=== PATIENT | female | born 1955 | race Asian ===

== ENCOUNTER 2025-01-25 10:46 | Inpatient (IN) | payer BC, MEDICARE ==
[~2025-01-25] VITALS: Ht 157.5 cm; Wt 64.7 kg
[~2025-01-25 10:46] MED LIST: ASPI81TA39 PO; METF-1211 PO; VALS160T2 PO
[2025-01-25 11:13] LABS: HEMATOCRIT 34.6 % (36-46); HEMOGLOBIN 11.6 g/dL (12.0-16.0); LYMPHOCYTES # (AUTO) 1.9 K/uL (1.0-4.8); LYMPHOCYTES % (AUTO) 14.1 % (22.0-44.0); MEAN CORPUSCULAR HEMOGLOBIN 29.3 pg (26.0-34.0); MEAN CORPUSCULAR HGB CONC 33.6 G/dL (31.0-37.0); MEAN CORPUSCULAR VOLUME 87 fL (80-100); MONOCYTES # (AUTO) 0.8 K/uL (0.1-1.0); MONOCYTES % (AUTO) 5.7 % (2.0-9.0); NEUTROPHILS # (AUTO) 10.6 K/uL (1.8-7.7); NEUTROPHILS % (AUTO) 78.2 % (40.0-70.0); PLATELET COUNT (AUTO) 302 K/uL (150-450); RED BLOOD CELL COUNT(AUTO) 3.97 MIL/uL (4.00-5.20); RED CELL DISTRIBUTION WIDTH 14.3 % (11.5-14.5); WHITE BLOOD COUNT (AUTO) 13.5 K/uL (4.5-11.0)
[2025-01-25 11:21] LABS: ANION GAP 9 mmol/L (8-16); CALCIUM, TOTAL 10.1 mg/dL (8.8-10.5); CARBON DIOXIDE 29 mmol/L (22-29); CHLORIDE 98 mmol/L (98-107); CREATININE 3.37 mg/dL (0.60-1.30); GLOMERULAR FILTR. RATE CALC 14 mL/min (>60); POTASSIUM 4.5 mmol/L (3.5-5.1); SODIUM SERUM 136 mmol/L (136-145); UREA NITROGEN, BLOOD 42 mg/dL (7-18)
[2025-01-25 11:24] LABS: GLUCOSE,RANDOM 401 mg/dL (70-110)
[2025-01-25 11:26] LABS: TROPONIN I-HIGH SENSITIVITY 23 ng/L (<51)
[2025-01-25 11:50] LABS: B-TYPE NATRIURETIC PEPTIDE 615 pg/mL (0-100)
[2025-01-25] MEDS: INSULIN REGULAR, HUMAN 100 UNITS/ML IVP ONE (12:04)
[2025-01-25 12:29] LABS: APPEARANCE,URINE CLEAR (CLEAR); BILIRUBIN,URINE NEGATIVE (NEGATIVE); COLOR,URINE LIGHT YELLOW (YELLOW); GLUCOSE, URINE (UA) >=1000 mg/dL (NEGATIVE); KETONES,URINE NEGATIVE (NEGATIVE); LEUKOCYTE ESTERASE ,URINE NEGATIVE (NEGATIVE); NITRATE,URINE NEGATIVE (NEGATIVE); OCCULT BLOOD,URINE NEGATIVE (NEGATIVE); PH,URINE 5.5 (5.0-8.0); PROTEIN,URINE TRACE mg/dL (NEGATIVE); SPECIFIC GRAVITIY, URINE 1.008 (1.003-1.030); UROBILINOGEN,URINE <=1.0 mg/dL (<=1.0)
[2025-01-25 12:50] LABS: BACTERIA,URINE None Seen /HPF (None Seen); RBC,URINE 0-2 /HPF (0-2); WBC,URINE 0-2 /HPF (0-5)
[2025-01-25 14:00] VITALS: BP 139/64; PULSE 71; RESP 12; TEMP 97.7; O2SAT 99
[2025-01-25] MEDS ORDERED: MORPHINE SULFATE 2 MG/ML SYRINGE IVP PRN (16:15)
[2025-01-25] MEDS ORDERED: ACETAMINOPHEN 325 MG TABLET PO PRN (16:15)
[2025-01-25] MEDS ORDERED: ONDANSETRON HCL 4 MG/2 ML VIAL IVP PRN (16:15)
[2025-01-25] MEDS ORDERED: MAGNESIUM HYDROXIDE SUSPENSION 30 ML UDCUP PO PRN (16:15)
[2025-01-25] MEDS ORDERED: DEXTROSE 50%-WATER 25 GM/50 ML SYRINGE IVP PRN (16:15)
[2025-01-25] MEDS ORDERED: HYDROCODONE/ACETAMINOPHEN 5-325 MG TABLET PO PRN (16:15)
[2025-01-25] MEDS ORDERED: BISACODYL 10 MG RECTAL RECTAL SUPPOSITORY PR PRN (16:15)
[2025-01-25] MEDS ORDERED: HydrALAZINE HCL 20 MG/ML VIAL IVP PRN (16:15)
[2025-01-25] MEDS ORDERED: ZOLPIDEM TARTRATE 5 MG TABLET PO PRN (16:15)
[2025-01-25] MEDS: INSULIN LISPRO 100 UNITS/ML SQ PRN (18:36)
[2025-01-25 20:00] VITALS: BP 115/65; PULSE 58; RESP 17; TEMP 97.6; O2SAT 99
[2025-01-25 20:31] LABS: GLUCOMETER DEV NAME(LOC) 5S.2D; GLUCOSE,POINT OF CARE 195 MG/DL (70-110)
[2025-01-25] MEDS: DOCUSATE SODIUM 100 MG CAPSULE PO SCH (21:00)
[2025-01-26 00:12] VITALS: BP 127/70; PULSE 68; RESP 18; TEMP 98.2; O2SAT 96
[2025-01-26] MEDS: HEPARIN SODIUM,PORCINE 5,000 UNITS/ML VIAL SQ SCH (00:34)
[2025-01-26 04:13] VITALS: BP 124/51; PULSE 66; RESP 17; TEMP 97.8; O2SAT 95
[2025-01-26 06:56] LABS: GLUCOMETER DEV NAME(LOC) 5S.2D; GLUCOSE,POINT OF CARE 148 MG/DL (70-110)
[2025-01-26 06:56] LABS: GLUCOMETER DEV NAME(LOC) 5S.2D; GLUCOSE,POINT OF CARE 125 MG/DL (70-110)
[2025-01-26 06:56] LABS: GLUCOMETER DEV NAME(LOC) 5N.1D; GLUCOSE,POINT OF CARE 135 MG/DL (70-110)
[2025-01-26 07:09] LABS: BASOPHILS % (AUTO) 0.7 % (0.0-2.0); EOSINOPHILS % (AUTO) 1.6 % (1.0-6.0); HEMATOCRIT 33.3 % (36-46); HEMOGLOBIN 11.2 g/dL (12.0-16.0); LYMPHOCYTES # (AUTO) 1.8 K/uL (1.0-4.8); LYMPHOCYTES % (AUTO) 17.7 % (22.0-44.0); MEAN CORPUSCULAR HEMOGLOBIN 29.2 pg (26.0-34.0); MEAN CORPUSCULAR HGB CONC 33.7 G/dL (31.0-37.0); MEAN CORPUSCULAR VOLUME 87 fL (80-100); MONOCYTES # (AUTO) 0.6 K/uL (0.1-1.0); MONOCYTES % (AUTO) 5.8 % (2.0-9.0); NEUTROPHILS # (AUTO) 7.6 K/uL (1.8-7.7); NEUTROPHILS % (AUTO) 74.2 % (40.0-70.0); PLATELET COUNT (AUTO) 275 K/uL (150-450); RED BLOOD CELL COUNT(AUTO) 3.85 MIL/uL (4.00-5.20); RED CELL DISTRIBUTION WIDTH 14.5 % (11.5-14.5); WHITE BLOOD COUNT (AUTO) 10.3 K/uL (4.5-11.0)
[2025-01-26 07:37] LABS: CALCIUM, TOTAL 9.8 mg/dL (8.8-10.5); CREATININE 2.84 mg/dL (0.60-1.30); POTASSIUM 3.8 mmol/L (3.5-5.1)
[2025-01-26 08:00] VITALS: BP 138/86; PULSE 89; RESP 17; TEMP 97.7; O2SAT 100
[2025-01-26] MEDS: PANTOPRAZOLE SODIUM 40 MG DR TABLET PO SCH (08:41)
[2025-01-26 11:45] LABS: GLUCOMETER DEV NAME(LOC) 5S.2D; GLUCOSE,POINT OF CARE 396 MG/DL (70-110)
[2025-01-26 12:04] VITALS: BP 144/95; PULSE 96; RESP 18; TEMP 98.1; O2SAT 98
[2025-01-26 13:17] LABS: CREATININE,URINE RANDOM 95.5 mg/dL (30.0-125.0)
[2025-01-26 16:00] VITALS: BP 135/83; PULSE 72; RESP 17; TEMP 97.7; O2SAT 98
[2025-01-26 18:26] LABS: GLUCOMETER DEV NAME(LOC) 5S.2D; GLUCOSE,POINT OF CARE 173 MG/DL (70-110)
[2025-01-26 20:39] VITALS: BP 156/115; PULSE 97; RESP 18; TEMP 98.1; O2SAT 96
[2025-01-27 00:37] VITALS: BP 142/87; PULSE 91; RESP 18; TEMP 98.5; O2SAT 96
[2025-01-27 04:45] LABS: GLUCOMETER DEV NAME(LOC) 5N.1D; GLUCOSE,POINT OF CARE 254 MG/DL (70-110)
[2025-01-27 04:58] VITALS: BP 137/85; PULSE 97; RESP 19; TEMP 98; O2SAT 96
[2025-01-27 06:56] LABS: BASOPHILS % (AUTO) 0.8 % (0.0-2.0); EOSINOPHILS % (AUTO) 1.8 % (1.0-6.0); HEMATOCRIT 35.7 % (36-46); LYMPHOCYTES % (AUTO) 20.1 % (22.0-44.0); MEAN CORPUSCULAR HEMOGLOBIN 29.1 pg (26.0-34.0); MEAN CORPUSCULAR HGB CONC 33.7 G/dL (31.0-37.0); MEAN CORPUSCULAR VOLUME 86 fL (80-100); MONOCYTES # (AUTO) 0.5 K/uL (0.1-1.0); MONOCYTES % (AUTO) 5.2 % (2.0-9.0); NEUTROPHILS # (AUTO) 7.2 K/uL (1.8-7.7); NEUTROPHILS % (AUTO) 72.1 % (40.0-70.0); PLATELET COUNT (AUTO) 304 K/uL (150-450); RED BLOOD CELL COUNT(AUTO) 4.13 MIL/uL (4.00-5.20); RED CELL DISTRIBUTION WIDTH 14.2 % (11.5-14.5)
[2025-01-27 07:06] LABS: CALCIUM, TOTAL 9.7 mg/dL (8.8-10.5); CREATININE 3.32 mg/dL (0.60-1.30); POTASSIUM 3.7 mmol/L (3.5-5.1)
[2025-01-27 08:00] VITALS: BP 140/83; PULSE 94; RESP 18; TEMP 98.6; O2SAT 97
[2025-01-27] MEDS ORDERED: FentaNYL CITRATE PF 100 MCG/2 ML VIAL ONE (08:57)
[2025-01-27] MEDS ORDERED: MIDAZOLAM HCL 2 MG/2 ML VIAL ONE (08:57)
[2025-01-27] MEDS ORDERED: LIDOCAINE/PF 1% 30 ML VIAL ONE (08:57)
[2025-01-27 10:10] LABS: GLUCOMETER DEV NAME(LOC) 5N.1D; GLUCOSE,POINT OF CARE 134 MG/DL (70-110)
[2025-01-27 11:46] LABS: CREATININE,URINE 71.1 mg/dL (30.0-125.0)
[2025-01-27 11:58] LABS: CREATININE,SERUM FOR CRCL 3.32 mg/dL (0.60-1.30)
[2025-01-27 12:00] VITALS: BP 141/88; PULSE 100; RESP 18; TEMP 98.2; O2SAT 97
[2025-01-27 12:06] LABS: GLUCOMETER DEV NAME(LOC) 5S.2D; GLUCOSE,POINT OF CARE 360 MG/DL (70-110)
[2025-01-27 16:00] VITALS: BP 139/85; PULSE 89; RESP 18; TEMP 98.3; O2SAT 100
[2025-01-27 17:01] LABS: GLUCOMETER DEV NAME(LOC) 5S.2D; GLUCOSE,POINT OF CARE 275 MG/DL (70-110)
[2025-01-27 20:11] VITALS: BP 153/99; PULSE 96; RESP 18; TEMP 98.3; O2SAT 98
[2025-01-27] MEDS: SODIUM CHLORIDE 0.9% 500 ML IV ONE (21:44)
[2025-01-27] MEDS: INSULIN LISPRO 100 UNITS/ML SQ ONE (21:45)
[2025-01-27] MEDS: INSULIN GLARGINE,HUM.REC.ANLOG 100 UNITS/ML SQ SCH (21:47)
[2025-01-27 22:11] LABS: GLUCOMETER DEV NAME(LOC) 5N.1D; GLUCOSE,POINT OF CARE 442 MG/DL (70-110)
[2025-01-28 00:04] VITALS: BP 130/92; PULSE 99; RESP 16; TEMP 98.3; O2SAT 100
[2025-01-28 05:46] VITALS: BP 128/74; PULSE 101; RESP 16; TEMP 98; O2SAT 98
[2025-01-28 07:39] LABS: BASOPHILS % (AUTO) 0.7 % (0.0-2.0); HEMATOCRIT 34.9 % (36-46); HEMOGLOBIN 11.6 g/dL (12.0-16.0); LYMPHOCYTES # (AUTO) 2.1 K/uL (1.0-4.8); LYMPHOCYTES % (AUTO) 19.4 % (22.0-44.0); MEAN CORPUSCULAR HGB CONC 33.4 G/dL (31.0-37.0); MEAN CORPUSCULAR VOLUME 87 fL (80-100); MONOCYTES # (AUTO) 0.9 K/uL (0.1-1.0); MONOCYTES % (AUTO) 8.3 % (2.0-9.0); NEUTROPHILS # (AUTO) 7.5 K/uL (1.8-7.7); NEUTROPHILS % (AUTO) 69.6 % (40.0-70.0); PLATELET COUNT (AUTO) 295 K/uL (150-450); RED BLOOD CELL COUNT(AUTO) 4.02 MIL/uL (4.00-5.20); RED CELL DISTRIBUTION WIDTH 14.2 % (11.5-14.5); WHITE BLOOD COUNT (AUTO) 10.8 K/uL (4.5-11.0)
[2025-01-28 07:54] LABS: CALCIUM, TOTAL 9.6 mg/dL (8.8-10.5); CREATININE 3.13 mg/dL (0.60-1.30); MAGNESIUM 1.8 mg/dL (1.80-2.40); PHOSPHORUS 4.9 mg/dL (2.5-4.9); POTASSIUM 3.7 mmol/L (3.5-5.1)
[2025-01-28 08:30] VITALS: BP 152/96; PULSE 100; RESP 19; TEMP 97.8; O2SAT 97
[2025-01-28 11:31] VITALS: BP 153/95; PULSE 106; RESP 18; TEMP 98.1; O2SAT 96
[2025-01-28] MEDS ORDERED: SODI650T33 PO (11:41)
[2025-01-28] MEDS ORDERED: METO50 PO (11:41)
[2025-01-28] MEDS ORDERED: FERR325T27 PO (11:41)
[2025-01-28] MEDS ORDERED: METF-1211 PO (11:41)
[2025-01-28] MEDS ORDERED: AMLO-258 PO (11:41)
[2025-01-28] MEDS ORDERED: APIX2.5T PO (11:41)
[2025-01-28] MEDS ORDERED: CLON0.1T PO (11:41)
[2025-01-28] MEDS ORDERED: HYDR25TA2 PO (11:41)
[2025-01-28] MEDS ORDERED: GLIP5TAB16 PO (11:41)
[2025-01-28] MEDS: METOPROLOL TARTRATE 25 MG TABLET PO SCH (12:34)
[2025-01-28 13:25] LABS: GLUCOMETER DEV NAME(LOC) 5S.2D; GLUCOSE,POINT OF CARE 212 MG/DL (70-110)
[2025-01-28 13:25] LABS: GLUCOMETER DEV NAME(LOC) 5S.2D; GLUCOSE,POINT OF CARE 126 MG/DL (70-110)
[2025-01-31 07:06] LABS: ALBUMIN URINE (ELP24) 33.1 %; ALPHA-1 URINE (ELP24) 1.7 %; BETA URINE(ELP24) 20.3 %; GAMMA URINE(ELP24) 36.5 %
== END 2025-01-28 13:00 | disposition home or self-care (01) | DRG 637 ==
LOC: EMS 11:15 → EDH 12:02 → 5S 13:50
PROVIDERS: ADMIT Internal Medicine; ATTEND Internal Medicine
DX: E11.65 Type 2 diabetes mellitus with hyperglycemia (principal); N17.0 Acute kidney failure with tubular necrosis; I48.20 Chronic atrial fibrillation, unspecified; D63.8 Anemia in other chronic diseases classified elsewhere; Z79.4 Long term (current) use of insulin; I10 Essential (primary) hypertension
CPT/HCPCS: 71045; 80048; 81001; 81050; 82043; 82570; 82575; 82962; 83036; 83735; 83880; 84100; 84156; 84166; 84300; 84484; 84540; 85025; 85610; 85730; 93005; 96372; 99285; J1644; J1815; J2250; J3010; J3490; J7040; 36415-L1; 36415-TC